=== PATIENT | male | born 1970 | race Caucasian/White ===

== ENCOUNTER 2016-07-18 11:04 | Emergency (ER) | payer BC ==
[2016-07-18] MEDS ORDERED: HYDROmorphone 1 MG/ML Syringe IVPUSH ONE (11:18)
[2016-07-18] MEDS ORDERED: Ondansetron 4 MG/2 ML SDV IVPUSH ONE (11:18)
[2016-07-18] MEDS ORDERED: Ketorolac 30 MG/ML SDV IVPUSH ONE (11:19)
[2016-07-18] MEDS ORDERED: Sodium Chloride 0.9% 1,000 ML IV ONE (11:20)
[2016-07-18 11:55] VITALS: BP 149/96
--- NOTE | 2016-07-18 22:11 | ER ---
Date of Service: 07/18/2016 SUBJECTIVE: Levi presents to the emergency room with complaints of right flank pain. The patient was initially seen at [facility] for this pain. He was given 2 mg of morphine IM and lab was drawn consisting of a CBC and a basic metabolic panel. He also had a bladder scan, which did not reveal any significant residual urine. The patient also had a urinalysis, which did reveal moderate blood in his urine. The patient was subsequently sent to our facility for further evaluation and care. PAST MEDICAL HISTORY: Recurrent kidney stones of unknown composition. MEDICATIONS: None. ALLERGIES: NKDA. REVIEW OF SYSTEMS: General: No fever or chills. HEENT: No sore throat, rhinorrhea, or congestion. Respiratory: No shortness of breath. Cardiac: Denies any substernal chest pain. No jaw, arm, neck, or back pain. GI/: Please see history of present illness. Complains of severe right-sided abdominal and flank pain. Musculoskeletal: No myalgias or arthralgias. Neurologic: No fainting, blackouts, or lightheadedness. PHYSICAL EXAMINATION: General: This is a 45-year-old male patient, in no acute distress. Vital Signs: Blood pressure was initially 165/104, was rechecked after pain control and was down to 149/96; pulse rate is 63; respiratory rate is 20. Skin: Warm, pink, and dry. HEENT: Head is normocephalic, atraumatic. Eyes, PERRLA. Extraocular movements are intact. Mouth, oral mucosa is somewhat dry. No erythema or exudate noted. No hypopharynx. Neck: Supple. No masses. There is no lymphadenopathy. Lungs: Clear to auscultation. Heart: Regular rate and rhythm. Abdomen: Soft, nontender. There is no masses or hepatosplenomegaly noted. No CVA tenderness noted. LABORATORY DATA: Glucose was 113, BUN is 13, creatinine is 1.09, sodium is 137, potassium is 4.4, chloride is 101, bicarb is 26, calcium is 10.0. Total protein is 7.5, albumin is 4.5, alkaline phosphatase is 77, AST is 37, ALT is 87, total bilirubin is 0.5. Urinalysis again reveals blood in his urine. CBC; WBCs 8.1, hemoglobin is 14.8, platelets are 210. CT scan of the patient's abdomen and pelvis without contrast was obtained. There was evidence of approximately 4 mm stone at the right UVJ. EMERGENCY ROOM COURSE: IV access was established. He was given a liter of normal saline IV. He was given Zofran 4 mg IV for nausea, Toradol 30 mg IV for pain, and Dilaudid 1 mg IV for pain. Did report significant improvement in his discomfort. He remained stable in my care in the emergency room. ASSESSMENT: A 4 mm kidney stone at right vesicoureteral junction with no evidence of hydronephrosis. PLAN: The patient was started on [place] 10/325 with instructions to take 1 every 4 to 6 hours as needed for pain. Also was started on Flomax 0.4 mg daily. Return to the emergency room if the pain is unrelenting. He was advised to strain his urine and collect any stones and bring them for analysis. All questions were answered. MWK: 07/18/2016 18:04:59 MODL: 07/18/2016 22:04:16 /[id number]
== END 2016-07-18 13:10 | disposition home or self-care (01) ==
LOC: VM.ED 11:04
DX: N20.1 Calculus of ureter (principal)
CPT/HCPCS: 74176; 96361; 96374; 96375; 99284; J1170; J1885; J2405; J7030

== ENCOUNTER 2020-12-30 10:53 | Emergency (ER) | payer OTHER, BC ==
[2020-12-30 11:05] VITALS: BP 143/75; PULSE 81
[2020-12-30] MEDS: Lidocaine 1% 30 ML SDV INJECT ONE (11:33)
[2020-12-30] MEDS: Bupivacaine 0.5% 30 ML SDV INJECT PRN (11:33)
[2020-12-30] MEDS: Diphtheria,Pertussis(Acell),Tetanus Vaccine 0.5 ML Syringe IM ONE (11:34)
--- NOTE | 2020-12-30 12:11 | EDM.PDOC ---
ED HPI GENERAL MEDICAL PROBLEM - General Chief Complaint: Laceration Stated Complaint: laceration forearm Time Seen by Provider: 12/30/20 11:00 Source of Information: Reports: Patient History Limitations: Reports: No Limitations - History of Present Illness INITIAL COMMENTS - FREE TEXT/NARRATIVE: Patient comes emergency department today from home with complaints of a laceration to the volar surface of his left forearm. This patient is unsure of when his last tetanus shot was. He was at home today painting his house when he leaned over and kind of fell onto the flashing around a fireplace and sustained a laceration on the left volar surface of his forearm. He denies any paresthesias to his hand. Denies any change in the functionality of his left hand. He came immediately to the emergency department after he noticed the laceration to his left forearm. Left Lower Arm Pain Score (Numeric/FACES): 1 - Related Data Allergies Allergy/AdvReac Type Severity Reaction Status Date / Time No Known Allergies Allergy Verified 12/30/20 11:30 Home Meds: Home Meds . [No Known Home Meds] 07/18/16 [History] Past Medical History - Past Health History Medical/Surgical History: Denies Medical/Surgical History Genitourinary History: Reports: Renal Calculus Social & Family History - Tobacco Use Tobacco Use Status *Q: Never Tobacco User ED ROS GENERAL - Review of Systems Review Of Systems: Comprehensive ROS is negative, except as noted in HPI. ED EXAM, SKIN/RASH Exam: See Below Exam Limited By: No Limitations General Appearance: Alert, WD/WN, No Apparent Distress Respiratory/Chest: No Respiratory Distress, Lungs Clear Cardiovascular: Normal Peripheral Pulses, Regular Rate, Rhythm Peripheral Pulses: 2+: Radial (L), Radial (R) Extremities: Other (This is really a J shaped fillet type laceration that extends horizontally into the tissue. No foreign material or debris. ). No: Normal Inspection (Exam isolated the left forearm. On the volar surface of the distal three fourths there is a transverse 6.5 cm laceration that extends past the subcutaneous tissue just down to the muscle fascia. Does not extend past the fascia or into the muscle belly. There is no active bleeding. ) Neurological: Alert Psychiatric: Normal Affect, Normal Mood Skin: Warm, Dry, Intact, Normal Color, No Rash ED SKIN PROCEDURES - Laceration/Wound Repair Left Medial Ventral Arm Appearance: Subcutaneous, Linear, Irregular, Clean Distal NVT: Neuro & Vascular Intact, No Tendon Injury Anesthetic Type: Local Local Anesthesia - Lidocaine (Xylocaine): 1% Plain Local Anesthesia - Bupivicaine (Marcaine): 0.5% Plain Local Anesthetic Volume: Other (8) Skin Prep: Chlorhexidine (Hibiciens), Saline Saline Irrigation (cc's): 500 Exploration/Debridement/Repair: Wound Explored, In a Bloodless Field, Explored to Base, Multiple Flaps Aligned Closed with: Wound Adhesive Lac/Wound length In cm: 6.5 Suture Size: 4-0 Suture Type: Interrupted, Running, Other (There was a mix of running and interrupted sutures with excellent skin approximation.) Suture Size: 3-0 # of Sutures: 3 (Subcutaneous tissue was approximated using Vicryl suture above the muscle fascia.) Repaired with: Vicryl Sterile Dressing Applied: Nurse Tetanus Status Addressed: Yes Complications: No Course - Vital Signs Last Recorded V/S: Last Vital Signs Temp 97.8 F 12/30/20 10:55 Pulse 81 12/30/20 10:55 Resp 18 12/30/20 10:55 BP 143/75 H 12/30/20 10:55 Pulse Ox 97 12/30/20 10:55 - Orders/Labs/Meds Orders: Active Orders 24 hr Category Date Time Status Vaccines to be Administered [RC] PER UNIT ROUTINE Care 12/30/20 11:24 Active Bupivacaine 0.5% [Marcaine 0.5%] Med 12/30/20 11:08 Active 30 ml INJECT ASDIRECTED PRN Medication Orders Bupivacaine HCl (Bupivacaine 0.5% 30 Ml Sdv) 30 ml INJECT ASDIRECTED PRN PRN Reason: Other Last Admin: 12/30/20 11:33 Dose: 30 ml Documented by: SONYA Meds: Medications Generic Name Dose Route Start Last Admin Trade Name Freq PRN Reason Stop Dose Admin Bupivacaine HCl 30 ml 12/30/20 11:08 12/30/20 11:33 Bupivacaine 0.5% 30 Ml Sdv INJECT 30 ml ASDIRECTED PRN Administration Other Discontinued Medications Generic Name Dose Route Start Last Admin Trade Name Freq PRN Reason Stop Dose Admin Diphtheria/Tetanus/Acell Pertussis 0.5 ml 12/30/20 11:24 12/30/20 11:34 Diphtheria,Pertussis(Acell),Tetanus Vaccine 0.5 Ml Syringe IM 12/30/20 11:25 0.5 ml .ONCE ONE Administration Lidocaine HCl 30 ml 12/30/20 11:08 12/30/20 11:33 Lidocaine 1% 30 Ml Sdv INJECT 12/30/20 11:09 30 ml ONETIME ONE Administration - Re-Assessments/Exams Free Text/Narrative Re-Assessment/Exam: Tetanus immunization was updated. Please see procedure note for repair. This laceration is really like a horizontal fillet type laceration that extends down to the muscle fascia although does not involve the fascia. There is no foreign material. It was cleansed and closed in a double layer fashion. Discharge directions as below are explained to the patient was comfortable with this plan his questions are answered. Departure - Departure Time of Disposition: 12:09 Disposition: Home, Self-Care 01 Clinical Impression: Forearm laceration Qualifiers: Encounter type: initial encounter Laterality: left Qualified Code(s): S51.812A - Laceration without foreign body of left forearm, initial encounter - Discharge Information Instructions: Laceration Care, Adult, [id number], Pain Medicine Instructions, [id number] Forms: ED Department Discharge Additional Instructions: Cleanse wound twice daily with soap and water. Bacitracin and bandage until healed. Watch for signs of infection. Sutures out in 10 days. Return to the ED if new or worsening symptoms. Follow up with PCP as needed and suture removal in 10 days. Sepsis Event Note (ED) - Focused Exam Vital Signs: Vital Signs Temp Pulse Resp BP Pulse Ox 12/30/20 10:55 97.8 F 81 18 143/75 H 97 - My Orders Last 24 Hours: My Active Orders 12/30/20 11:08 Bupivacaine 0.5% [Marcaine 0.5%] 30 ml INJECT ASDIRECTED PRN 12/30/20 11:24 Vaccines to be Administered [RC] PER UNIT ROUTINE - Assessment/Plan Last 24 Hours: My Active Orders 12/30/20 11:08 Bupivacaine 0.5% [Marcaine 0.5%] 30 ml INJECT ASDIRECTED PRN 12/30/20 11:24 Vaccines to be Administered [RC] PER UNIT ROUTINE
== END 2020-12-30 12:20 | disposition home or self-care (01) ==
LOC: VM.ED 10:53
DX: S51.812A Laceration without foreign body of left forearm, initial encounter (principal); Z23 Encounter for immunization; W26.8XXA Contact with other sharp object(s), not elsewhere classified, initial encounter; Y92.009 Unspecified place in unspecified non-institutional (private) residence as the place of occurrence of the external cause
CPT/HCPCS: 12032; 90471; 90715; 99282-25; 99283; J3490

== ENCOUNTER 2023-12-07 07:25 | Day surgery (SDC) | payer BC ==
[~2023-12-07 07:25] MED LIST: Lactated Ringers 1,000 ML IV SCH
[2023-12-07] MEDS: Lactated Ringers 1,000 ML IV SCH (07:44)
[2023-12-07] MEDS ORDERED: Propofol 200 MG/20 ML SDV ONE (09:10)
[2023-12-07] MEDS ORDERED: fentaNYL 100 MCG/2 ML SDV ONE (09:11)
[2023-12-07] MEDS ORDERED: Midazolam 1 MG/ML 2 ML SDV ONE (09:11)
[2023-12-07 09:54] VITALS: BP 86/56; PULSE 50
[2023-12-21] MEDS ORDERED: Lactated Ringers 1,000 ML IV SCH (07:00)
== END 2023-12-07 10:40 | disposition home or self-care (01) ==
LOC: VM.SDS 07:25
PROVIDERS: ATTEND Surgery
DX: Z12.11 Encounter for screening for malignant neoplasm of colon (principal); D12.6 Benign neoplasm of colon, unspecified; G47.33 Obstructive sleep apnea (adult) (pediatric); L03.213 Periorbital cellulitis; H57.89 Other specified disorders of eye and adnexa; Z79.2 Long term (current) use of antibiotics; Z79.899 Other long term (current) drug therapy
CPT/HCPCS: J2250; J2704; J3010; J7120